=== PATIENT | male | born 1950 | race Caucasian/White ===

== ENCOUNTER → 2017-06-17 | Outpatient (CLI) | payer OTHER ==
[~2017-06-17] MED LIST: GLCPUNK; OXYC-57 PO; ZCRUNK
--- NOTE | 2017-06-17 11:16 | DIAGNOSTIC IMAGING REPORT ---
RIGHT SHOULDER MIN 2 VIEWS ROUTINE CLINICAL HISTORY: Right shoulder pain COMPARISON: None. DISCUSSION: No fractures or dislocations are visualized. There are mild degenerative changes within the chromic clavicular joint. IMPRESSION: No fractures or dislocations identified. Electronically signed by: Luis Fernando Paul M.D. 06/17/2017 11:14 AM Dictated Date/Time: 06/17/2017 11:14 AM
--- NOTE | 2017-06-17 11:18 | DIAGNOSTIC IMAGING REPORT ---
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 COMPARISON: None available. TECHNIQUE: 3 views of the left foot FINDINGS: Subcortical cystic changes are seen involving the base of the second metatarsal. Mild first MTP joint changes are seen. There is no acute fracture or dislocation. Minimal peripheral vascular calcifications are noted. There is mild spurring of the dorsal midfoot. IMPRESSION: 1. Mild degenerative changes without acute bony abnormality. 2. Peripheral vascular disease. The above report was generated using voice recognition software. It may contain grammatical, syntax or spelling errors. Electronically signed by: Josemanuel Gamboa M.D. 06/17/2017 11:16 AM Dictated Date/Time: 06/17/2017 11:14 AM
== END | disposition home or self-care (01) ==
LOC: C.RAD1850 10:56
PROVIDERS: ATTEND Internal Medicine Pulmonary Disease
DX: N52.9 Male erectile dysfunction, unspecified (principal); I49.3 Ventricular premature depolarization

== ENCOUNTER → 2017-06-17 | Outpatient (CLI) | payer OTHER ==
[2017-06-17 11:16] LABS: ALT/SGPT 31 U/L (12-78); BLOOD UREA NITROGEN 13 mg/dl (7-18); BUN/CREATININE RATIO 15.9 (10-20); CALCIUM 9.3 mg/dl (8.5-10.1); CARBON DIOXIDE 28 mmol/L (21-32); CHLORIDE 107 mmol/L (98-107); CHOLESTEROL 133 mg/dl (0-200); GLUCOSE 136 mg/dl (70-99); POTASSIUM 4.1 mmol/L (3.5-5.1); SODIUM 141 mmol/L (136-145)
[2017-06-17 11:20] LABS: ALB/GLOB RATIO 1.2 (0.9-2); ALKALINE PHOSPHATASE 53 U/L (45-117); AST/SGOT 18 U/L (15-37); CHOLESTEROL/HDL RATIO 2.5; HDL CHOLESTEROL 53 mg/dl; LDL CHOLESTEROL CALCULATED 65 mg/dl; PROSTATE SPECIFIC ANTIGEN 0.739 ng/ml (0.000-4.000); TRIGLYCERIDES 74 mg/dl (0-150); VERY LOW DENSITY LIPOPROT CALC 15 mg/dl
[2017-06-17 11:26] LABS: ESTIMATED AVERAGE GLUCOSE 140 mg/dl; HA1C FLAG Normal (Normal)
--- NOTE | 2017-06-30 09:12 | CODING QUERY MEDICAL NECESSITY ---
SUPPORTING DIAGNOSIS NEEDED A supporting diagnosis is required for the test/procedure performed on this patient in order for us to be reimbursed by the patient's insurance. Please provide a supporting diagnosis for the following test/procedure listed below next to the test name along with your signature. *If there is no additional diagnosis for this patient that would support the following test/procedure please document that below next to the test/procedure. Test(s)/Procedure(s) that require a supporting diagnosis: * PSA DIAGNOSIS: Provider Signature: Date: Thank you Ryann Goodson [employer] Once completed, please kindly fax back to [phone] For questions please call [phone]
== END | disposition home or self-care (01) ==
LOC: C.LABBC 07:37
PROVIDERS: ATTEND Internal Medicine Pulmonary Disease
DX: E11.9 Type 2 diabetes mellitus without complications (principal); Z80.42 Family history of malignant neoplasm of prostate; E78.00 Pure hypercholesterolemia, unspecified; F41.9 Anxiety disorder, unspecified; G47.00 Insomnia, unspecified; N52.9 Male erectile dysfunction, unspecified; I49.3 Ventricular premature depolarization; Z12.5 Encounter for screening for malignant neoplasm of prostate

== ENCOUNTER → 2017-12-22 | Outpatient (CLI) | payer OTHER ==
[2017-12-22 10:40] LABS: BASO % 0.8 %; BASO ABS # 0.04 K/uL (0-0.2); EOS % 2.9 %; EOS ABS # 0.14 K/uL (0-0.5); HEMATOCRIT 43.4 % (42-52); IG# 0.01 K/uL (0.00-0.02); LYMPH ABS # 1.86 K/uL (1.2-3.4); MEAN CELL VOLUME 91.9 fL (80-100); MEAN CORPUSCULAR HEMOGLOBIN 31.8 pg (25-34); MEAN CORPUSCULAR HGB CONC 34.6 g/dl (32-36); MEAN PLATELET VOLUME 11.1 fL (7.4-10.4); MONO % 11.9 %; MONO ABS # 0.58 K/uL (0.11-0.59); NEUT % 46.2 %; NEUT ABS # 2.26 K/uL (1.4-6.5); PLATELET COUNT 177 K/uL (130-400); RED CELL DISTRIBUTION WIDTH CV 13.2 % (11.5-14.5); RED CELL DISTRIBUTION WIDTH SD 44.7 fL (36.4-46.3); WHITE BLOOD COUNT 4.89 K/uL (4.8-10.8)
[2017-12-22 11:12] LABS: ALBUMIN 3.6 gm/dl (3.4-5.0); ALT/SGPT 35 U/L (12-78); AST/SGOT 18 U/L (15-37); BLOOD UREA NITROGEN 11 mg/dl (7-18); CALCIUM 8.5 mg/dl (8.5-10.1); CARBON DIOXIDE 26 mmol/L (21-32); CREATININE 0.79 mg/dl (0.60-1.40); GLUCOSE 132 mg/dl (70-99); SODIUM 140 mmol/L (136-145)
[2017-12-22 11:23] LABS: ALKALINE PHOSPHATASE 49 U/L (45-117); CHOLESTEROL 134 mg/dl (0-200); LDL CHOLESTEROL CALCULATED 60 mg/dl
== END | disposition home or self-care (01) ==
LOC: C.LABBC 08:08
PROVIDERS: ATTEND Internal Medicine Pulmonary Disease
DX: N52.9 Male erectile dysfunction, unspecified (principal)

== ENCOUNTER → 2018-02-17 | Day surgery (SDC) | payer OTHER ==
[2018-02-10 10:14] VITALS: BMI 31.0
[~2018-02-17] VITALS: Ht 180.3 cm; Wt 102.3 kg
[~2018-02-17] MED LIST changes: +COEN1CAP7 PO; +GLC/500 PO; -GLCPUNK; +LIDOCAINE HCL 2% 2 ML VIAL (20MG/ML) ONE; +LORA-741 PO; +MECL1TAB40 PO; +MULT-506 PO; -OXYC-57 PO; +PROPOFOL IV EMULSION 10 MG/ML 20 ML VIAL ONE; +SIMV20TA2 PO; +SODIUM CHLORIDE 0.9% 500ML 500 ML IV ONE; +TADA10TA PO; +VITACAP26 PO; -ZCRUNK; +ZOLP10TA6 PO
[2018-02-17 09:07] VITALS: Ht 180.3 cm; Wt 102.3 kg
--- NOTE | 2018-02-17 09:55 | Endo History and Physical ---
History & Physical Date of Service: February 17, 2018. Chief Complaint: SCREENING HISTORY OF COLON POLYPS Referring Physician: DR. GODOY History of Present Illness 67 yo CM who presents for colonoscopy secondary to history of colon polyps. Past Surgical History Hx Cardiac Surgery: No Hx Internal Defibrillator: No Hx Pacemaker: No Hx Abdominal Surgery: Yes (HERNIA REPAIR X2) Hx of Implantable Prosthesis: No Hx Cancer Surgery: Yes (BCC REMOVED FROM NECK) Hx Thoracic Surgery: No Hx Orthopedic: No Hx Urinary Tract Surgery: No Social History Smoking Status: Former Smoker Hx Substance Use: No Hx Alcohol Use: Yes (2 DRINKS A DAY) Allergies Uncoded Allergies: ADHESIVE TAPE (Allergy, Mild, RASH, 02/10/18) Current Medications Reported Home Medications Medications Dose Route/Sig Max Daily Dose Days Date Category Vitamin C (Vitamins C & E) 1 Cap Cap 200 Mg PO DAILY 02/10/18 Reported Multivitamin (Multivitamins) Tab 1 Tab PO DAILY 02/10/18 Reported Zolpidem Tartrate 10 Mg Tab 1 Tab PO HS PRN 30 02/10/18 Reported Zocor (Simvastatin) 20 Mg Tab 1 Tab PO QPM 90 02/10/18 Reported Glucophage (Metformin Hcl) 500 Mg Tab 1,000 Mg PO QDD 02/10/18 Reported Meclizine HCl 12.5 Mg Tab 1 Tab PO TID PRN 30 02/10/18 Reported Ativan (Lorazepam) 0.5 Mg Tab 0.5 Mg PO TID PRN 02/10/18 Reported Cialis (Tadalafil) 10 Mg Tab 10 Mg PO UD 02/10/18 Reported Vital Signs Weight (Kilograms): 102.27 Height (Feet): 5 Height (Inches): 11 Date Time Temp Pulse Resp B/P (MAP) Pulse Ox O2 Delivery O2 Flow Rate FiO2 02/17/18 09:18 36.9 54 20 131/72 (91) 95 Room Air Physical Exam General Appearance: WD/WN, no apparent distress Respiratory/Chest: Auscultation: breath sounds normal Cardiovascular: Heart Auscultation: RRR Abdomen: Bowel Sounds: normal Inspection & Palpation: soft, non-distended, no tenderness, guarding & rebound Assessment and Plan Assessment: 67 yo CM who presents for colonoscopy secondary to history of colon polyps. Plan: Proceed with colonoscopy.
--- NOTE | 2018-02-17 10:20 | Discharge Instructions ---
Endoscopy Patient Instructions Date / Procedure(s) Performed February 17, 2018. Colonoscopy Allergy Information Uncoded Allergies: ADHESIVE TAPE (Allergy, Mild, RASH, 02/10/18) Discharge Date / Findings February 17, 2018. Colon polyp Diverticulosis Internal hemorrhoids Medication Instructions OK to resume all medications today as prescribed Reported Home Medications Medications Dose Route/Sig Max Daily Dose Days Date Category Vitamin C (Vitamins C & E) 1 Cap Cap 200 Mg PO DAILY 02/10/18 Reported Multivitamin (Multivitamins) Tab 1 Tab PO DAILY 02/10/18 Reported Zolpidem Tartrate 10 Mg Tab 1 Tab PO HS PRN 30 02/10/18 Reported Zocor (Simvastatin) 20 Mg Tab 1 Tab PO QPM 90 02/10/18 Reported Glucophage (Metformin Hcl) 500 Mg Tab 1,000 Mg PO QDD 02/10/18 Reported Meclizine HCl 12.5 Mg Tab 1 Tab PO TID PRN 30 02/10/18 Reported Ativan (Lorazepam) 0.5 Mg Tab 0.5 Mg PO TID PRN 02/10/18 Reported Cialis (Tadalafil) 10 Mg Tab 10 Mg PO UD 02/10/18 Reported Provider Instructions Activity Restrictions - No exercising or heavy lifting for 24 hours. - Do not drink alcohol the day of the procedure. - Do not drive a car or operate machinery until the day after the procedure. - Do not make any important decisions or sign important papers in 24 hours after the procedure. Following Day: - Return to full activity which may include returning to work/school. Diet Start your diet with liquids and light foods (jello, soup, juice, toast). Then eat your usual diet if not nauseated. Treatment For Common After Affects For mild abdominal pain, bloating, or excessive gas: - Rest - Eat lightly - Lie on right side Follow-Up Information Follow-up with DR. GODOY as scheduled Anesthesia Information What You Should Know You have had a procedure that required some medicine to reduce anxiety and discomfort. This treatment is called moderate sedation. After receiving the treatment, you may be sleepy, but you will be able to breathe on your own. The effects of the treatment may last for several hours. Follow these instructions along with Activity/Diet recommendations noted above: * Do NOT do anything where dizziness or clumsiness would be dangerous. * Rest quietly at home today, then you can be up and about tomorrow. * Have a responsible person stay with you the rest of today. * You may have had an I.V. today. If so, you may take the dressing off later today. Recommendations Call your doctor if: * Trouble breathing * Continuous vomiting for more than 24 hours * Temperature above 101 degrees * Severe abdominal pain or bloating * Pain not relieved by pain medicine ordered * There is increased drainage or redness from any incision * A large amount of rectal bleeding greater than 2-3 tablespoons. (If you had a polyp/s removed or have hemorrhoids, a small amount of blood - from the rectum is to be expected.) * You have any unanswered questions or concerns. IN THE EVENT OF A SERIOUS EMERGENCY, GO TO THE NEAREST EMERGENCY ROOM Your discharge instructions were prepared by provider Sanya Stubbs. Patient Instructions Signature Page Gabriel Andujar Patient (or Guardian) Signature/Date: I have read and understand the instructions given to me by my caregivers. Caregiver/RN/Doctor Signature/Date: The above-named patient and/or guardian has received patient instructions on this date. + Original Patient Signature Page (only) stays with chart. Please make copy for patient.
--- NOTE | 2018-02-17 10:23 | GI REPORT ---
Patient Name: Gabriel Andujar Procedure Date: 02/17/2018 9:18 AM Date of : 1950 Admit Type: Outpatient Age: 67 Gender: Male Attending MD: Sanya Stubbs DO Procedure: Colonoscopy Providers: Sanya Stubbs DO Referring MD: Pierre Rueda Indications: High risk colon cancer surveillance: Personal history of colonic polyps Medicines: Monitored Anesthesia Care Complications: No immediate complications. Estimated Blood Loss: Estimated blood loss: none. Procedure: Pre-Anesthesia Assessment: - Prior to the procedure, a History and Physical was performed, and patient medications and allergies were reviewed. The patient's tolerance of previous anesthesia was also reviewed. The risks and benefits of the procedure and the sedation options and risks were discussed with the patient. All questions were answered, and informed consent was obtained. Prior Anticoagulants: The patient has taken no previous anticoagulant or antiplatelet agents. ASA Grade Assessment: II - A patient with mild systemic disease. After reviewing the risks and benefits, the patient was deemed in satisfactory condition to undergo the procedure. After I obtained informed consent, the scope was passed under direct vision. Throughout the procedure, the patient's blood pressure, pulse, and oxygen saturations were monitored continuously. The scope was introduced through the anus and advanced to the cecum, identified by appendiceal orifice and ileocecal valve. The colonoscopy was performed without difficulty. The patient tolerated the procedure well. The quality of the bowel preparation was good. The ileocecal valve, appendiceal orifice, and rectum were photographed. Findings: The perianal and digital rectal examinations were normal. A 5 mm polyp was found in the descending colon. The polyp was sessile. The polyp was removed with a hot snare. Resection and retrieval were complete. Multiple small-mouthed diverticula were found in the sigmoid colon. Non-bleeding internal hemorrhoids were found during retroflexion. The hemorrhoids were small. Impression: - One 5 mm polyp in the descending colon, removed with a hot snare. Resected and retrieved. - Diverticulosis in the sigmoid colon. - Non-bleeding internal hemorrhoids. Recommendation: - Resume previous diet. - Continue present medications. - Repeat colonoscopy for surveillance based on pathology results. - Return to primary care physician as previously scheduled. Sanya Stubbs DO 02/17/2018 10:22:39 AM This report has been signed electronically. Note Initiated On: 02/17/2018 9:18 AM Number of Addenda: 0 I attest to the content of the Intraoperative Record and orders documented therein, exceptions below {[id number]}
--- NOTE | 2018-02-17 10:51 | Anesthesiology Progress Note ---
Anesthesia Post Op Note Date & Time February 17, 2018 at 10:51 Vital Signs Pain Intensity: 0 Vital Signs Past 12 Hours Date Time Temp Pulse Resp B/P (MAP) Pulse Ox O2 Delivery O2 Flow Rate FiO2 02/17/18 10:40 61 16 109/63 (78) 97 Room Air 02/17/18 10:23 36.7 57 16 119/69 (86) 97 Room Air 02/17/18 09:18 36.9 54 20 131/72 (91) 95 Room Air Notes Mental Status: alert / awake / arousable, participated in evaluation Pt Amnestic to Procedure: Yes Nausea / Vomiting: adequately controlled Pain: adequately controlled Airway Patency, RR, SpO2: stable & adequate BP & HR: stable & adequate Hydration State: stable & adequate Anesthetic Complications: no major complications apparent
[2018-02-17 10:55] VITALS: BP 124/73; PULSE 57; O2SAT 94
== END | disposition home or self-care (01) ==
LOC: C.GI 08:39
PROVIDERS: ATTEND Internal Medicine
DX: Z12.11 Encounter for screening for malignant neoplasm of colon (principal); D12.4 Benign neoplasm of descending colon; K57.30 Diverticulosis of large intestine without perforation or abscess without bleeding; K64.8 Other hemorrhoids; E11.9 Type 2 diabetes mellitus without complications; Z86.010 Personal history of colon polyps; Z98.890 Other specified postprocedural states; Z90.89 Acquired absence of other organs; Z87.891 Personal history of nicotine dependence; Z79.84 Long term (current) use of oral hypoglycemic drugs; Z79.899 Other long term (current) drug therapy